=== PATIENT | female | born 1990 | race Caucasian/White ===

== ENCOUNTER 2023-09-08 09:38 | Inpatient (IN) | payer BC ==
[2023-09-08] MEDS ORDERED: AMPICILLIN - 2 GM in SODIUM CHLORIDE 100 ML IVPB ONE ×3 (10:00→14:28)
[2023-09-08] MEDS ORDERED: ELECTROLYTE-148 SOLN 1,000 ML IV SCH ×3 (11:00→14:45)
[2023-09-08] MEDS ORDERED: AMPICILLIN SODIUM 2 GM VIAL ONE (11:33)
[2023-09-08 11:45] LABS: BASO % 0.2 % (0-2.0); EOS % 0.4 % (0-4.5); HEMATOCRIT 37.3 % (32.4-45.2); HEMOGLOBIN 12.4 GM/dL (10.7-15.3); LYMPH % 14.6 % (8-40); MCHC 33.3 g/dl (32.0-36.0); MEAN CELL VOLUME 81.1 fl (80-96); MEAN PLT VOLUME 8.4 fl (7.5-11.1); MONO % 5.1 % (3.8-10.2); NEUT % 79.7 % (42.8-82.8); PLATELET COUNT 351 10^3/uL (134-434); RBC 4.59 M/mm3 (3.60-5.2); RDW 15.1 % (11.6-15.6); WHITE BLOOD COUNT 15.1 K/mm3 (4.0-10.0)
[2023-09-08 11:51] LABS: INR 1.03 (0.83-1.09); PROTHROMBIN TIME (PATIENT) 11.9 SEC (9.7-13.0)
[2023-09-08 11:54] LABS: ACTIVATED PTT 23.7 SECONDS (25.2-36.5)
[2023-09-08 12:10] LABS: POTASSIUM 3.8 mmol/L (3.5-5.1)
[2023-09-08 12:11] LABS: CALCIUM 8.7 mg/dL (8.5-10.1)
[2023-09-08 12:12] LABS: BLOOD UREA NITROGEN 5.7 mg/dL (7-18)
[2023-09-08 12:15] LABS: CREATININE 0.6 mg/dL (0.55-1.3)
[2023-09-08 13:00] LABS: HIV INTERPRETATION NEGATIVE (NEGATIVE)
[2023-09-08 13:53] VITALS: BMI 38.4
[2023-09-08] MEDS ORDERED: AMPICILLIN SODIUM 1 GM VIAL ONE ×3 (13:57→22:13)
[2023-09-08 14:19] LABS: POC NITRAZINE POS
[2023-09-08] MEDS: AMPICILLIN - 1 GM in SODIUM CHLORIDE 100 ML IVPB SCH ×3 (14:30→22:00)
[2023-09-08] MEDS ORDERED: PROMETHAZINE HCL 25 MG/1 ML VIAL IVPB ONE (14:36)
[2023-09-08] MEDS ORDERED: BUTORPHANOL TARTRATE 1 MG/ML VIAL IVPB ONE (14:36)
[2023-09-08] MEDS ORDERED: OXYTOCIN 30 UNITS in 0.9% NS 30 UNIT/500 ML INFUS.BAG IVPB SCH (14:45)
[2023-09-08] MEDS ORDERED: OXYTOCIN 30 UNITS in 0.9% NS 30 UNIT/500 ML INFUS.BAG IVPB ONE (22:13)
[2023-09-08] MEDS ORDERED: FENTANYL/BUPIVACAINE/NS/PF - PCEA - 50 ML DISP.SYRIN EP ONE (22:39)
[2023-09-08] MEDS: FENTANYL/BUPIVACAINE/NS/PF - PCEA - 50 ML DISP.SYRIN EP SCH (23:00)
[2023-09-09] MEDS ORDERED: FENTANYL/BUPIVACAINE/NS/PF - PCEA - 50 ML DISP.SYRIN EP ONE (01:22)
[2023-09-09] MEDS: FENTANYL/BUPIVACAINE/NS/PF - PCEA - 50 ML DISP.SYRIN EP SCH (01:30)
[2023-09-09] MEDS ORDERED: NALOXONE HCL 0.4 MG/ML VIAL IVPUSH PRN (01:35)
[2023-09-09] MEDS: AMPICILLIN - 1 GM in SODIUM CHLORIDE 100 ML IVPB SCH ×3 (02:00→14:11)
[2023-09-09] MEDS ORDERED: AMPICILLIN SODIUM 1 GM VIAL ONE (02:11)
[2023-09-09] MEDS ORDERED: OXYTOCIN 20 UNITS in 0.9% NS 20 UNIT/1,000 ML INFUS.BAG IV ONE (04:33)
[2023-09-09] MEDS ORDERED: WITCH HAZEL 50% (TUCKS) 40 PAD/JAR PAD TP PRN (05:47)
[2023-09-09] MEDS ORDERED: BISACODYL 10 MG SUPP.RECT RC PRN (05:47)
[2023-09-09] MEDS ORDERED: METHYLERGONOVINE MALEATE 0.2 MG/1 ML AMP IM PRN (05:47)
[2023-09-09] MEDS ORDERED: ACETAMINOPHEN 325 MG TABLET (FP) PO PRN (05:47)
[2023-09-09] MEDS ORDERED: BENZOCAINE 28 GM HEMORRHOIDAL OINTMENT TP PRN (05:47)
[2023-09-09] MEDS ORDERED: OXYTOCIN 20 UNITS in 0.9% NS 20 UNIT/1,000 ML INFUS.BAG IV SCH (06:00)
[2023-09-09 06:50] LABS: CORD BASE EXCESS -5.6 mmol/L (0-2); CORD HCO3 22.8 mmHg (20-29); CORD PCO2 55.6 mmHg (30-78); CORD pH 7.23 (7.14-7.44)
[2023-09-09] MEDS ORDERED: ACETAMINOPHEN 325 MG TABLET (FP) ONE (07:13)
[2023-09-09] MEDS: IBUPROFEN 600 MG TABLET (FP) PO PRN ×3 (11:47→23:15)
[2023-09-09] MEDS: BENZOCAINE 20% 57 GM BOTTLE TP PRN ×2 (11:47→19:17)
[2023-09-10] MEDS: IBUPROFEN 600 MG TABLET (FP) PO PRN ×2 (08:27→22:14)
[2023-09-10 09:55] LABS: BASO % 0.2 % (0-2.0); EOS % 0.6 % (0-4.5); HEMATOCRIT 35.2 % (32.4-45.2); HEMOGLOBIN 11.6 GM/dL (10.7-15.3); LYMPH % 20.1 % (8-40); MCH 27.3 pg (25.7-33.7); MEAN CELL VOLUME 82.6 fl (80-96); MEAN PLT VOLUME 8.2 fl (7.5-11.1); MONO % 5.7 % (3.8-10.2); NEUT % 73.4 % (42.8-82.8); PLATELET COUNT 295 10^3/uL (134-434); RBC 4.26 M/mm3 (3.60-5.2); RDW 14.9 % (11.6-15.6); WHITE BLOOD COUNT 15.2 K/mm3 (4.0-10.0)
[2023-09-10] MEDS ORDERED: SENNOSIDES/DOCUSATE COMBO (SENNA PLUS) TABLET (UD) PO PRN (22:00)
[2023-09-11] MEDS: IBUPROFEN 600 MG TABLET (FP) PO PRN (10:30)
[2023-09-11 12:02] VITALS: BP 121/75; PULSE 103; RESP 17; TEMP 98.4
== END 2023-09-11 14:45 | disposition home or self-care (01) | DRG 807 ==
LOC: JLDR 09:38 → J3W 09-09 08:35
PROVIDERS: ADMIT Obstetrics & Gynecology; ATTEND Obstetrics & Gynecology
PROC: 10E0XZZ Delivery of Products of Conception, External Approach (ICD-10-PCS; principal; 2023-09-09)
DX: O42.92 Full-term premature rupture of membranes, unspecified as to length of time between rupture and onset of labor (principal); Z3A.37 37 weeks gestation of pregnancy; Z37.0 Single live birth
CPT/HCPCS: 36415; 36600; 80048; 82803; 83986-QW; 85025; 85610; 85730; 86780; 86850; 86900; 86901; 87389